=== PATIENT | female | born 1960 | race Caucasian/White ===

== ENCOUNTER → 2020-06-09 16:09 | Outpatient (CLI) | payer BC, SELFPAY ==
--- NOTE | 2020-06-09 | DI.MRI.S_ITS ---
PROCEDURE: MR SHOULDER LT WO CON INDICATIONS: Impingement syndrome of left shoulder TECHNIQUE: Noncontrast oblique coronal T2 fast spin echo with fat saturation, oblique sagittal T1 spin echo and T2 fast spin echo with fat saturation, axial T1 spin echo and T2 fast spin echo with fat saturation through the shoulder. COMPARISON: [facility] [place], CR, XR SHOULDER 2+ VIEWS LEFT, 05/05/2020, 15:49. FINDINGS: Image quality: Excellent. Rotator cuff: There is tendinosis and low to moderate grade articular and bursal surface partial thickness tear involving distal supraspinatus and infraspinatus at their insertion on the humeral head extending to musculotendinous junction. Distal subscapularis tendinosis and low-grade intrasubstance partial-thickness tear is also seen. Sagittal images demonstrate no significant muscle atrophy. Bones and bursae: No bone marrow contusions or fractures. Mild acromioclavicular joint and glenohumeral joint osteoarthritic changes are seen. The acromion demonstrates conventional anatomy, without an os acromiale. Small amount of joint effusion and subacromial subdeltoid bursal fluid is seen. Capsule and soft tissues: In the absence of intra-articular contrast, is suggestion of superior anterior labral tear at 12 to 1 o'clock position. The glenohumeral ligaments appear intact. The long head of the biceps tendinosis is seen. The rotator interval appears normal, without fibrosis. The coracohumeral ligament is normal in thickness. IMPRESSION: 1. Tendinosis and low to moderate grade articular and bursal surface partial thickness tear involving distal supraspinatus and infraspinatus extending to musculotendinous junction. Distal subscapularis tendinosis and low-grade intrasubstance partial-thickness tear. No full-thickness rotator cuff tendon rupture. 2. Mild acromioclavicular joint and glenohumeral joint osteoarthritis. 3. Suggestion of superior anterior labral tear at 12 to 1 o'clock position. 4. Proximal intra-articular portion of long head of biceps tendinosis. Dictated by: Дмитрий Coker M.D. on 06/09/2020 at 17:03 Approved by: Дмитрий Coker M.D. on 06/09/2020 at 17:24
== END ==
PROVIDERS: PCP Internal Medicine; Referring Provider Orthopaedic Surgery; Visit Provider Orthopaedic Surgery
DX: M75.42 Impingement syndrome of left shoulder (principal); M75.112 Incomplete rotator cuff tear or rupture of left shoulder, not specified as traumatic; M19.012 Primary osteoarthritis, left shoulder
CPT/HCPCS: 73221

== ENCOUNTER → 2020-08-02 14:51 | Outpatient (CLI) | payer BC, SELFPAY ==
--- NOTE | 2020-08-02 | DI.RAD.S_ITS ---
PROCEDURE: XR DEXA AXIAL SKELETON INDICATIONS: ASYMPTOMATIC MENOPAUSAL STATE COMPARISON: None. FINDINGS: This blank DEXA report has been sent in error by the PACS system. The correct and complete report will be forthcoming in 1-2 days. Thank you for your patience and understanding. Dictated by: Gerson Marroquin M.D. on 08/02/2020 at 17:18 Approved by: Gerson Marroquin M.D. on 08/02/2020 at 17:18
== END ==
PROVIDERS: PCP Internal Medicine; Referring Provider Internal Medicine; Visit Provider Internal Medicine
DX: M85.852 Other specified disorders of bone density and structure, left thigh; Z78.0 Asymptomatic menopausal state; Z87.891 Personal history of nicotine dependence; Z82.62 Family history of osteoporosis
CPT/HCPCS: 77080

== ENCOUNTER → 2020-08-03 10:15 | Outpatient (CLI) | payer BC, SELFPAY ==
--- NOTE | 2020-08-03 | DI.MG.S_ITS ---
BILATERAL DIGITAL SCREENING MAMMOGRAM 3D/2D WITH CAD: 08/03/2020 CLINICAL: Routine screening. Comparison is made to exams dated: 05/07/2018 mammogram, 04/10/2016 mammogram, and 03/20/2014 mammogram - outside location. There are scattered fibroglandular elements in both breasts. Current study was also evaluated with a Computer Aided Detection (CAD) system. No significant masses, calcifications, or other findings are seen in either breast. There has been no significant interval change. IMPRESSION: NEGATIVE There is no mammographic evidence of malignancy. A 1 year screening mammogram is recommended. This exam was interpreted at Station ID: [id number]. NOTE: For mammograms, a report in lay terms will be sent to the patient. Approximately 15% of breast malignancies will not be visualized mammographically. In the management of a palpable breast mass, a negative mammogram must not discourage biopsy of a clinically suspicious lesion. Electronically Signed By: Haley norris/johnny:08/03/2020 16:22:28 letter sent: Normal Exam ACR BI-RADS Category 1: Negative [id number]
== END ==
PROVIDERS: PCP Internal Medicine; Referring Provider Internal Medicine; Visit Provider Internal Medicine
DX: Z12.31 Encounter for screening mammogram for malignant neoplasm of breast (principal)
CPT/HCPCS: 77063; 77067

== ENCOUNTER 2020-12-26 10:20 | Emergency (ER) | payer BC, SELFPAY ==
[2020-12-26 10:25] VITALS: BP 117/67; PULSE 76; RESP 17; TEMP 36.2; O2SAT 97
--- NOTE | 2020-12-26 10:38 | DI.RAD.S_ITS ---
PROCEDURE: XR FOOT RT MIN 3V INDICATIONS: fall from 3rd rung of ladder, + swelling bruising and pain. TECHNIQUE: 3 views of the foot were acquired. COMPARISON: None. FINDINGS: Bones: Mildly comminuted, minimally displaced fracture of base of the 5th metatarsal extending to the articular surface. No suspicious bony lesions. Soft tissues: No tibiotalar joint effusion. Achilles tendon appears normal. IMPRESSION: Mildly comminuted, minimally displaced fracture base 5th metatarsal extending to articular surface. Dictated by: Robert Mathews M.D. on 12/26/2020 at 10:33 Approved by: Robert Mathews M.D. on 12/26/2020 at 10:33
--- NOTE | 2020-12-26 10:38 | DI.RAD.S_ITS ---
PROCEDURE: XR ANKLE RT MIN 3V INDICATIONS: fall from 3rd rung of ladder, + swelling bruising and pain. TECHNIQUE: 3 views of the ankle were acquired. COMPARISON: None. FINDINGS: Bones: Minimally displaced base of 5th metatarsal fracture extending to the articular surface. No other fractures or dislocations are identified. Ankle mortise is normally aligned. No suspicious bony lesions. Soft tissues: No tibiotalar joint effusion. Achilles tendon appears normal. IMPRESSION: Minimally displaced base of 5th metatarsal fracture extending to the articular surface. Dictated by: Robert Mathews M.D. on 12/26/2020 at 10:31 Approved by: Robert Mtahews M.D. on 12/26/2020 at 10:32
--- NOTE | 2020-12-26 11:29 | ED_ITS ---
HPI - Extremity Injury (Lower) General Chief Complaint: Extremity Injury, Lower Stated Complaint: fell off of ladder, left ankle pain Time Seen by Provider: 12/26/20 10:46 Source: patient Mode of arrival: Wheelchair Limitations: no limitations History of Present Illness HPI Narrative: Patient is a 60-year-old female who presents with left foot and ankle pain. She states she fell a ladder this morning she was 1-2 steps high when she fell backwards. Her foot got twisted and stuck. She did hit her head but all no loss of consciousness she has no sign of trauma to her head. She denies any neck pain no back pain. She does have a small abrasion on her right elbow as well. She actually has an appointment with orthopedic surgery in 2 days for follow-up after her left shoulder surgery. Related Data Previous Rx's Medication Instructions Recorded hydrocodone 5 mg-acetaminophen 325 1 tab PO Q6H PRN #10 tab 12/26/20 mg tablet Allergies Allergy/AdvReac Type Severity Reaction Status Date / Time meperidine [From Demerol] Allergy Unknown Verified 12/26/20 10:42 Review of Systems Review of Systems Narrative: GENERAL: Denies chills, fatigue, malaise, fever, sweats, travel HEENT: Denies sinus pain, ear pain, sore throat, difficulty swallowing, neck pain RESPIRATORY: Denies dyspnea, cough, wheezing, hemoptysis, sputum. CARDIOVASCULAR: Denies chest pain, palpitations, orthopnea, edema GASTROINTESTINAL: Denies nausea, vomiting, abdominal pain, diarrhea, constipation, melena. : Denies dysuria, frequency, incontinence, hematuria, urinary retention, flank pain. MUSCULOSKELETAL: See HPI SKIN: No rash, no erythema, no pruritus NEUROLOGIC: Denies weakness, dizziness, headache, numbness, change in speech, confusion PSYCHIATRIC: No concerning psychosocial issues. 12 point review of systems is negative except for those stated above and HPI Patient History Social History Smoking Status: Former smoker Smoking Status: Former smoker alcohol intake frequency: 0-2 drinks per day Substance Use Type: does not use Exam Initial Vital Signs Initial Vital Signs: Vital Signs Temperature 97.1 F L 12/26/20 10:25 Pulse Rate 76 12/26/20 10:25 Respiratory Rate 17 12/26/20 10:25 Blood Pressure 117/67 12/26/20 10:25 Pulse Oximetry 97 12/26/20 10:25 GENERAL: Alert well-appearing 60-year-old the change and in no acute distress. HEENT: Head atraumatic,EOMI, pupils reactive, face symmetric, moist mucous membranes CARDIOVASCULAR: Regular rate and rhythm without murmurs, rubs or gallops. RESPIRATORY: Breath sounds equal bilaterally, no wheezes rales or rhonchi. ABDOMEN: Soft, nontender. Normoactive bowel sounds all 4 quadrants. No guarding or rebound. EXTREMITIES: Normal range of motion, no clubbing or edema. Neurovascularly intact Left ankle swelling and contusion distal pedal pulse intact. Pain at 5th metatarsal no significant swelling NEUROLOGICAL: Alert and oriented x4. SKIN: Warm, dry, no laceration, no petechiae, no rashes or lesions. Course Orders Ordered: ED Orders 12/26/20 10:38 XR ankle RT min 3V Stat XR foot RT min 3V Stat Discontinued Medications Hydrocodone Bitart/Acetaminophen (Hydrocodone/Acet 5/325 Tablet) 1 tab PO NOW ONE Stop: 12/26/20 11:48 Last Admin: 12/26/20 11:52 Dose: 1 tab Documented by: KLAUDIA Vital Signs Vital signs: Vital Signs - 8 hr 12/26/20 12:10 Pulse Rate 70 Respiratory Rate 14 Blood Pressure 100/78 Pulse Oximetry 99 MDM - Extremity Injury (Lower) Imaging Data Extremity x-ray #1: Radiologist's Impression: PROCEDURE: XR ANKLE RT MIN 3V INDICATIONS: fall from 3rd rung of ladder, + swelling bruising and pain. TECHNIQUE: 3 views of the ankle were acquired. COMPARISON: None. FINDINGS: Bones: Minimally displaced base of 5th metatarsal fracture extending to the articular surface. No other fractures or dislocations are identified. Ankle mortise is normally aligned. No suspicious bony lesions. Soft tissues: No tibiotalar joint effusion. Achilles tendon appears normal. IMPRESSION: Minimally displaced base of 5th metatarsal fracture extending to the articular surface. Dictated by: Robert Mathews M.D. on 12/26/2020 at 10:31 Extremity x-ray #2: Radiologist's Impression: PROCEDURE: XR FOOT RT MIN 3V INDICATIONS: fall from 3rd rung of ladder, + swelling bruising and pain. TECHNIQUE: 3 views of the foot were acquired. COMPARISON: None. FINDINGS: Bones: Mildly comminuted, minimally displaced fracture of base of the 5th metatarsal extending to the articular surface. No suspicious bony lesions. Soft tissues: No tibiotalar joint effusion. Achilles tendon appears normal. IMPRESSION: Mildly comminuted, minimally displaced fracture base 5th metatarsal extending to articular surface. Dictated by: Robert Mathews M.D. on 12/26/2020 at 10:33 Discharge Plan Departure Patient Disposition: Home Clinical Impression: Ankle sprain Fracture of fifth metatarsal bone of left foot Qualifiers: Encounter type: initial encounter Fracture type: closed Physeal involvement: unspecified Qualified Code(s): S92.352A - Displaced fracture of fifth metatarsal bone, left foot, initial encounter for closed fracture Instructions: Ankle Sprain, DI for Toe Fracture Activity Restrictions/Additional Instructions: *You have been diagnosed with left ankle sprain and a left 5th metatarsal fracture *What to do: Where orthopedic shoe at all times. Use crutches as needed. Elevate and ice ankle and foot as needed *Continue to take medications as directed [place] 1 tablet every 6 hours if needed for severe pain Ibuprofen 600 mg every 6 hours if needed for xbew-um-sdbsprrc pain *Follow up with your primary care provider in 2-3 days Follow-up with your orthopedic as scheduled in 2 days *Return to ER if you should have increasing pain, redness, swelling or any new, worsening or concerning symptoms CONTROLLED SUBSTANCE DISCHARGE (Narcotoic/benzodiazepine/Flexeril/Phenergan) 1. You have been prescribed narcotic medications, it does have acetaminophen/Tylenol/paracetamol in it, DO NOT TAKE MORE THAN 4,00mg in 24 hours of Tylenol. TRAMADOL DOES NOT CONTAIN TYLENOL 2. Please understand that we cannot provide further refills of narcotics, benzodiazepines or controlled substances through the ED and her pain management will need to be through your provider. 3. While on these medications you cannot drive or operate heavy machinery. 4. You cannot sign legal documents or perform any duties such as this. 5. As long as you're taking opiate pain medications he should also be taking a stool softener such as Colace, Dulcolax, MiraLAX or prune juice, to help avoid constipation. Prescriptions: New hydrocodone-acetaminophen 5-325 mg tablet 1 tab PO Q6H PRN (Reason: pain) Qty: 10 RF: 0 Referrals: Ginna Mcdonald ARNP [Primary Care Provider] -
[2020-12-26] MEDS: HYDROCODONE/ACET 5/325 TABLET 1 TAB PO (11:52)
[2020-12-26 12:10] VITALS: BP 100/78; PULSE 70; RESP 14; O2SAT 99
== END 2020-12-26 12:12 | disposition home or self-care (01) ==
PROVIDERS: Emergency Provider Emergency Medicine; PCP Internal Medicine
DX: S92.352A Displaced fracture of fifth metatarsal bone, left foot, initial encounter for closed fracture (principal); S93.402A Sprain of unspecified ligament of left ankle, initial encounter; W11.XXXA Fall on and from ladder, initial encounter
CPT/HCPCS: 73610; 73630; 99283; 99284

== ENCOUNTER → 2022-02-15 08:22 | Outpatient (CLI) | payer BC, SELFPAY ==
--- NOTE | 2022-02-15 | DI.MG.S_ITS ---
BILATERAL DIGITAL SCREENING MAMMOGRAM 3D/2D WITH CAD: 02/15/2022 CLINICAL: Routine screening. Comparison is made to exams dated: 08/03/2020 mammogram - [facility], 05/07/2018 mammogram, 04/10/2016 mammogram, and 03/20/2014 mammogram - outside location. There are scattered areas of fibroglandular density in both breasts (category b / 25%-50% glandular tissue). Current study was also evaluated with a Computer Aided Detection (CAD) system. No significant masses, calcifications, or other findings are seen in either breast. There has been no significant interval change. IMPRESSION: NEGATIVE There is no mammographic evidence of malignancy. A 1 year screening mammogram is recommended. Based on the Tyrer Cuzick model (a risk assessment model) the patient's lifetime risk is 6.2% and her 10 year risk is 2.7%. According to the ACR, ACS, and NCCN guidelines, an annual breast MRI exam along with mammogram is recommended if the patient's lifetime risk is 20% or greater. This exam was interpreted at Station ID: [id number]. NOTE: For mammograms, a report in lay terms will be sent to the patient. Approximately 15% of breast malignancies will not be visualized mammographically. In the management of a palpable breast mass, a negative mammogram must not discourage biopsy of a clinically suspicious lesion. Electronically Signed By: Neville garcia/johnny:02/15/2022 11:10:10 letter sent: Normal Exam ACR BI-RADS Category 1: Negative 3341F
== END ==
PROVIDERS: PCP Internal Medicine; Referring Provider Internal Medicine; Visit Provider Internal Medicine
DX: Z12.31 Encounter for screening mammogram for malignant neoplasm of breast (principal)
CPT/HCPCS: 77063; 77067

== ENCOUNTER 2022-10-13 15:43 | Emergency (ER) | payer BC, SELFPAY ==
[2022-10-13 15:54] VITALS: BP 132/77; PULSE 73; RESP 18; TEMP 36.6; O2SAT 100; BMI 25.7
--- NOTE | 2022-10-13 16:45 | PC.NURSE ---
Removed bandage and bleeding has stopped. Lac appears well approximated and less then 1cm
== END 2022-10-13 17:17 | disposition left against medical advice (07) ==
PROVIDERS: Emergency Provider Emergency Medicine; PCP Internal Medicine
CPT/HCPCS: 99281

== ENCOUNTER 2023-07-03 08:52 | Emergency (ER) | payer BC, SELFPAY ==
[2023-07-03 09:00] VITALS: BP 112/77; PULSE 78; RESP 18; TEMP 36.6; O2SAT 98; BMI 25.7
--- NOTE | 2023-07-03 09:22 | DI.CT.S_ITS ---
PROCEDURE: CT HEAD/BRAIN WO CON INDICATIONS: RAMÍREZ vertigo, recent head injury TECHNIQUE: Noncontrast 4.5 mm thick angled axial sections acquired from the foramen magnum to the vertex, with coronal and sagittal reformats. For radiation dose reduction, the following was used: automated exposure control, adjustment of mA and/or kV according to patient size. COMPARISON: None. FINDINGS: Image quality: Diagnostic. CSF spaces: Basal cisterns are patent. No extra-axial fluid collections. Ventricles are normal in size and shape. Brain: No midline shift. No intracranial masses or hemorrhage. Tyler-white matter interface is normal. Skull and face: Calvarium and visualized facial bones are intact, without suspicious lesions. Sinuses: Visualized sinuses and mastoids are clear. IMPRESSION: No acute intracranial pathology. Dictated by: Agnes Vu M.D. on 07/03/2023 at 9:45 Approved by: Agnes Vu M.D. on 07/03/2023 at 9:46
--- NOTE | 2023-07-03 09:24 | ED.HEATRA ---
HPI - Head Injury General Chief complaint: Head Injury Stated complaint: vertigo really bad/headache/hit head 1wk ago Time Seen by Provider: 07/03/23 09:17 Source: patient Mode of arrival: Wheelchair History of Present Illness HPI Narrative: This is a 63-year-old female who arrives by private vehicle accompanied by her who contributes to the history. She says that she is having dizziness has been ongoing for 3 days. It is constant but it does change with movements of her head. It has been progressive since its onset. It was associated with a headache nausea and vomiting. She has not had fevers. Six days ago, she fell backwards from standing height and hit the back of her head. No loss of consciousness. Did not have a severe headache at that time. She is not taking any blood thinners. In addition to the headache with nausea and vomiting she has some diarrhea. She was in [place] when she fell. She says the vertigo is present all the time. It is worse when she is standing up or when her head is left side down. No changes in her hearing. No other neurologic symptoms, no numbness weakness difficulty with speech or swallowing not having fevers. Had diarrhea when she returned from [place] this is almost completely resolved at present. Related Data Home Medications Medication Instructions Recorded Confirmed citalopram [Celexa] PO 03/29/22 03/29/22 terbinafine HCl 250 mg tablet 250 mg PO DAILY 03/29/22 03/29/22 Previous Rx's Medication Instructions Recorded lidocaine HCl 2 % mucosal solution 1 applic mucous membrane TID mouth 03/29/22 sores #100 mL lorazepam 0.5 mg tablet 0.5 mg PO BID PRN vertigo #10 tabs 07/03/23 ondansetron 4 mg disintegrating 4 mg PO Q6H PRN nausea and 07/03/23 tablet vomiting #10 tabs Allergies Allergy/AdvReac Type Severity Reaction Status Date / Time meperidine [From Demerol] Allergy Unknown Verified 10/13/22 15:59 erythromycin base AdvReac Intermediate Abdominal Verified 10/13/22 15:59 Pain Patient History Social History Smoking Status: Former smoker Smoking Status: Former smoker alcohol intake frequency: a few times a month Substance Use Type: marijuana Exam Initial Vital Signs Initial Vital Signs: Vital Signs Temperature 97.8 F 07/03/23 09:00 Pulse Rate 78 07/03/23 09:00 Respiratory Rate 18 07/03/23 09:00 Blood Pressure 112/77 07/03/23 09:00 Pulse Oximetry 98 07/03/23 09:00 Oxygen Delivery Method Room Air 07/03/23 09:00 HENMT Head: normocephalic, atraumatic, No contusion, No hematoma, No laceration, No palpable skull fracture and No raccoon eyes Ears: hearing grossly normal bilaterally, TM's normal bilaterally and mastoids normal HENMT Other: No kellogg sign or raccoon eyes Eyes Pupils: PERRL EOM: EOM intact bilaterally, no movement deficit and nystagmus (Fast phase to the left horizontal nystagmus) Neck Neck: supple and No tender Resp Effort & Inspection: normal respiratory effort and able to speak in complete sentences Auscultation: clear to auscultation bilaterally Skin General: dry skin and warm Neuro Cranial Nerves: nystagmus (Fast phase to the left horizontal nystagmus) Cognition: normal cognition Speech: speech normal Motor: muscle tone normal throughout and strength 5/5 throughout Course Orders Ordered: ED Orders 07/03/23 09:22 CT head/brain wo con Stat 07/03/23 09:38 CBC Auto Diff [Complete Blood Count AUTO DIFF] Stat CMP [Comprehensive Metabolic Panel] Stat PT [Prothrombin Time INR] Stat Discontinued Medications Ondansetron HCl (Ondansetron 4 Mg Odt) 4 mg SL NOW ONE Stop: 07/03/23 09:23 Last Admin: 07/03/23 09:33 Dose: 4 mg Documented By: HAYLIE Vital Signs Vital signs: Vital Signs - 8 hr 07/03/23 09:00 Temperature 97.8 F Pulse Rate 78 Respiratory Rate 18 Blood Pressure 112/77 Pulse Oximetry 98 Oxygen Delivery Method Room Air MDM - Head Injury Lab Data Lab results narrative: CBC with diff and CMP are unremarkable 07/03/23 09:38 07/03/23 09:38 Labs: Lab Results 07/03/23 Range/Units 09:38 WBC 4.4 L (4.5-11.0) X10^3/uL RBC 5.36 H (4.0-5.2) X10^6/uL Hgb 16.4 H (12.0-16.0) g/dL Hct 48.0 H (36-46) % MCV 89.7 (80-100) fL MCH 30.6 (26-34) PG MCHC 34.1 (30-36) % RDW 14.2 (11.6-14.8) % Plt Count 223 (150-400) X10^3/uL Neut % (Auto) 72.0 (50-75) % Lymph % (Auto) 19.2 L (25-40) % [place] % (Auto) 7.1 (3-14) % Eos % (Auto) 1.1 L (2-4) % Baso % (Auto) 0.6 (0-2) % Neut # (Auto) 3200 (4868-4792) /uL Lymph # (Auto) 900 L (8968-2751) /uL [place] # (Auto) 300 (0-900) /uL Eos # (Auto) 0 (0-450) /uL Baso # (Auto) 0 (0-100) /uL PT 12.1 (9.4-12.5) SECONDS INR 1.1 (0.9-1.3) Sodium 137 (137-145) mmol/L Potassium 4.5 (3.4-5.1) mmol/L Chloride 103 (98-107) mmol/L Carbon Dioxide 27 (22-32) mmol/L BUN 14 (7-17) mg/dL Creatinine 0.96 (0.52-1.04) mg/dL Estimated GFR > 60 (>60) mL/min BUN/Creatinine Ratio 14.6 (6-22) Glucose 98 (80-110) mg/dL Calcium 9.7 (8.4-10.2) mg/dL Total Bilirubin 0.7 (0.2-1.3) mg/dL AST 30 (14-36) IU/L ALT 24 (<35) IU/L Alkaline Phosphatase 56 (38-126) U/L Total Protein 7.8 (6.3-8.2) g/dL Albumin 4.4 (3.5-5.0) g/dL Globulin 3.4 (1.7-4.1) g/dL Albumin/Globulin Ratio 1.3 (1.0-2.8) Imaging Data CT scan - head: My Impression: No evidence of basal skull fracture or hemorrhage Radiologist's Impression: No acute findings on report MDM Narrative Medical decision making narrative: 63-year-old female presenting with 3 days of vertigo. Onset was about 3 days after a minor head injury without loss of consciousness and she was asymptomatic for 3 days after the minor head injury. CT head is negative for evidence of acute intracranial injury or skull fracture I also did not see any evidence of a basilar skull fracture. Overall I do not think the patient's dizziness is related to a concussion or head injury. Presentation is consistent with peripheral vertigo, given her otherwise reassuring exam and history who not pursue an MRI given that she has had 3 days of symptoms and has a normal non con head CT. We discussed treatment of vestibular neuronitis with prednisone, the patient prefers not to do that and I do not think the evidence for it is good. Recommended symptomatic care including ondansetron with just a few lorazepam as needed for vertigo we discussed the need to not drink alcohol or drive after taking lorazepam. Discharge Plan Departure Patient Disposition: Home Clinical Impression: Dizziness, Acute vestibular neuronitis of left ear Activity Restrictions/Additional Instructions: Today we saw you for dizziness. Workup is generally reassuring, I do not think your symptoms are from a stroke or head injury. We discussed prednisone which might help you feel better sooner but the evidence is weak and you declined. I sent prescriptions for ondansetron to use for nausea and a few lorazepam for dizziness. Do not drive or drink alcohol after taking lorazepam. You can use acetaminophen (Tylenol) as needed for headaches. Acetaminophen (tylenol) should be dosed at 650 mg every 4 hours or 1000mg every 6 hours. It can be given as needed but is more effective if given on a scheduled basis. Total daily dose should not exceed 4,000mg. If you were prescribed norco (hydrocodone/apap) or percocet (oxycodone/apap) each tablet of these contains 325 mg of acetaminophen and should be included when calculating daily dose Make an appointment to follow up with the regular doctor soon. If having disabling dizziness or other acute symptoms of concern such as chest pain shortness of breath new numbness or weakness or severe headache return to the emergency department. Prescriptions: New ondansetron 4 mg tablet,disintegrating 4 mg PO Q6H PRN (Reason: nausea and vomiting) Qty: 10 0RF lorazepam 0.5 mg tablet 0.5 mg PO BID PRN (Reason: vertigo) Qty: 10 0RF No Action terbinafine HCl 250 mg tablet 250 mg PO DAILY citalopram [Celexa] PO lidocaine HCl 2 % solution 1 applic mucous membrane TID Qty: 100 0RF Referrals: Ginna Mcdonald ARNP [Primary Care Provider] - Stand Alone Forms: Patient Portal/API
[2023-07-03] MEDS: ONDANSETRON 4 MG ODT SL (09:33)
[2023-07-03 09:50] LABS: Add Manual Diff / Slide Review NO; Basophils Absolute Auto 0 /uL (0-100); Basophils Percent Auto 0.6 % (0-2); Eosinophils Absolute Auto 0 /uL (0-450); Eosinophils Percent Auto 1.1 % (2-4); Hemoglobin 16.4 g/dL (12.0-16.0); Lymphocytes Absolute Auto 900 /uL (1100-4500); Lymphocytes Percent Auto 19.2 % (25-40); Mean Corpuscular HGB Conc 34.1 % (30-36); Mean Corpuscular Hemoglobin 30.6 PG (26-34); Mean Corpuscular Volume 89.7 fL (80-100); Monocytes Absolute Auto 300 /uL (0-900); Monocytes Percent Auto 7.1 % (3-14); Neutrophils Absolute Auto 3200 /uL (1500-7000); Platelet Count 223 X10^3/uL (150-400); Red Blood Cell Count 5.36 X10^6/uL (4.0-5.2); Red Cell Distribution Width 14.2 % (11.6-14.8); White Blood Cell Count 4.4 X10^3/uL (4.5-11.0)
[2023-07-03 10:02] LABS: INR 1.1 (0.9-1.3); Prothrombin Time 12.1 SECONDS (9.4-12.5)
[2023-07-03 10:06] LABS: Alanine Aminotransferase 24 IU/L (<35); Albumin 4.4 g/dL (3.5-5.0); Albumin Globulin Ratio 1.3 (1.0-2.8); Alkaline Phosphatase 56 U/L (38-126); Aspartate Aminotransferase 30 IU/L (14-36); BUN Creatinine Ratio 14.6 (6-22); Bilirubin Total 0.7 mg/dL (0.2-1.3); Blood Urea Nitrogen 14 mg/dL (7-17); Calcium 9.7 mg/dL (8.4-10.2); Carbon Dioxide 27 mmol/L (22-32); Chloride 103 mmol/L (98-107); Estimated Glomerular Filt Rate > 60 mL/min (>60); Globulin 3.4 g/dL (1.7-4.1); Glucose 98 mg/dL (80-110); HEMOLYSIS < 15 (0-50); Potassium 4.5 mmol/L (3.4-5.1); Sodium 137 mmol/L (137-145); Total Protein 7.8 g/dL (6.3-8.2)
[2023-07-03 11:30] VITALS: BP 112/67; PULSE 66; RESP 16; O2SAT 96
== END 2023-07-03 11:30 | disposition home or self-care (01) ==
PROVIDERS: Emergency Provider Emergency Medicine; PCP Internal Medicine
DX: H81.22 Vestibular neuronitis, left ear (principal); R42 Dizziness and giddiness; S09.90XD Unspecified injury of head, subsequent encounter; W18.30XD Fall on same level, unspecified, subsequent encounter
CPT/HCPCS: 36415; 70450; 80053; 85025; 85610; 99283; 99284

== ENCOUNTER → 2023-07-31 08:41 | Outpatient (CLI) | payer BC, SELFPAY ==
--- NOTE | 2023-07-31 08:42 | DI.MG.S_ITS ---
BILATERAL DIGITAL DIAGNOSTIC MAMMOGRAM 3D/2D: 07/31/2023 CLINICAL: Skin discoloration. Comparison is made to exams dated: 02/15/2022 mammogram, 08/03/2020 mammogram - [facility], and 05/07/2018 mammogram - outside location. There are scattered areas of fibroglandular density in both breasts (category b / 25%-50% glandular tissue). No significant masses, calcifications, or other findings are seen in either breast. IMPRESSION: INCOMPLETE: NEEDS ADDITIONAL IMAGING EVALUATION There is no abnormality seen in the left breast to correspond with the area of clinical concern indicated by a square marker in the medial aspect, however, ultrasound is recommended. Based on the Tyrer Cuzick model (a risk assessment model) the patient's lifetime risk is 5.8% and her 10 year risk is 2.7%. According to the ACR, ACS, and NCCN guidelines, an annual breast MRI exam along with mammogram is recommended if the patient's lifetime risk is 20% or greater. This exam was interpreted at Station ID: [id number]. NOTE: For mammograms, a report in lay terms will be sent to the patient. Approximately 15% of breast malignancies will not be visualized mammographically. In the management of a palpable breast mass, a negative mammogram must not discourage biopsy of a clinically suspicious lesion. Electronically Signed By: Gerson gill/johnny:07/31/2023 09:31:48 ACR BI-RADS Category 0: Incomplete [id number]
--- NOTE | 2023-07-31 08:43 | DI.US.S_ITS ---
LIMITED ULTRASOUND OF LEFT BREAST: 07/31/2023 CLINICAL: Skin rash/discoloration. Comparison is made to exams dated: 07/31/2023 mammogram, 02/15/2022 mammogram, and 08/03/2020 mammogram - [facility]. Real-time ultrasound of the left breast 8-9 o'clock region was performed. Tyler scale images of the real-time examination were reviewed. No significant abnormalities were seen sonographically in the left breast. IMPRESSION: NEGATIVE There is no sonographic evidence of malignancy. There is no abnormality seen in the left breast to correspond with the area of clinical concern at 9 o'clock, however, clinical followup is recommended. Return to annual mammogram screening schedule is recommended. This exam was interpreted at Station ID: [id number]. Electronically Signed By: Gerson gill/johnny:07/31/2023 09:46:52 letter sent: Clinical Evaluation Ultrasound BI-RADS: 1 Negative
== END ==
PROVIDERS: PCP Internal Medicine; Referring Provider Internal Medicine; Visit Provider Internal Medicine
DX: R92.2 Inconclusive mammogram (principal); N63.23 Unspecified lump in the left breast, lower outer quadrant; R21 Rash and other nonspecific skin eruption; R92.323 Mammographic fibroglandular density, bilateral breasts
CPT/HCPCS: 76642; 77066; G0279

== ENCOUNTER → 2023-12-12 | Outpatient (CLI) | payer BC, SELFPAY ==
--- NOTE | 2023-12-12 08:36 | DI.RAD.S_ITS ---
PROCEDURE: XR FOOT LT MIN 3V INDICATIONS: LT FOOT PAIN TECHNIQUE: 3 views of the foot were acquired. COMPARISON: [facility], CR, XR FOOT 3 VIEWS WEIGHT BEARING LEFT, 05/10/2021, 10:01. [facility], CR, XR FOOT 3 VIEWS WEIGHT BEARING LEFT, 09/25/2022, 10:53. FINDINGS: Bones: No acute fractures or dislocations. Osseous protuberance at the 5th metatarsal base may be the sequela of remote prior trauma. No suspicious bony lesions. Generalized osteopenia. Mild degenerative changes at the 1st metatarsophalangeal joint and in the interphalangeal joints of the toes. Calcaneal enthesopathy. Soft tissues: No suspicious soft tissue calcification. IMPRESSION: 1. Small osseous protuberance at the 5th metatarsal base is likely the sequela of prior trauma/instrumentation. 2. Mild forefoot osteoarthrosis. 3. Calcaneal enthesopathy. Approved by: Gerson Marroquin M.D. on 12/12/2023 at 14:11
== END ==
PROVIDERS: PCP Internal Medicine; Referring Provider Podiatrist; Visit Provider Podiatrist
DX: M19.072 Primary osteoarthritis, left ankle and foot (principal); M79.672 Pain in left foot; M77.32 Calcaneal spur, left foot; M89.9 Disorder of bone, unspecified
CPT/HCPCS: 73630

== ENCOUNTER → 2024-08-25 | Outpatient (CLI) | payer MEDICARE, BC, SELFPAY ==
--- NOTE | 2024-08-25 12:06 | DI.MG.S_ITS ---
MM screening mammo BI: 08/25/2024. BI-RADS: 1 CLINICAL: 64-year old female for bilateral screening mammogram. Tyrer-Cuzick lifetime risk of 3.9%. No personal or first-degree family history of breast cancer. PRIOR EXAMS 07/31/2023, 02/15/2022, 08/03/2020, 04/10/2016. MAMMOGRAPHY TECHNIQUE: Current study was also evaluated with a Computer Aided Detection (CAD) system. DENSITY B. There are scattered areas of fibroglandular density. MAMMOGRAPHY FINDINGS Bilateral: No suspicious mass, asymmetry, microcalcification, or other abnormality seen. IMPRESSION: * No evidence of malignancy. RECOMMENDATIONS Bilateral * Annual screening mammography. OVERALL ASSESSMENT CATEGORY BI-RADS-1: Negative. The [employer] recommends annual screening mammography beginning at age 40 for women with average risk of breast cancer. ELECTRONICALLY SIGNED: Neville Contreras M.D. on 08/26/2024 at 03:17:59 PM Interpreting Station ID: [id number]
== END ==
PROVIDERS: PCP Registered Nurse; Referring Provider Registered Nurse; Visit Provider Registered Nurse
DX: Z12.31 Encounter for screening mammogram for malignant neoplasm of breast (principal)
CPT/HCPCS: 77063; 77067

== ENCOUNTER → 2024-09-05 09:43 | Outpatient (CLI) | payer MEDICARE, BC, SELFPAY ==
--- NOTE | 2024-09-05 09:45 | DI.RAD.S_ITS ---
PROCEDURE: XR DEXA AXIAL SKELETON INDICATIONS: SCREENING FOR OSTEOPOROSIS COMPARISON: [facility], CR, XR DEXA AXIAL SKELETON, 08/02/2020, 15:09. FINDINGS: Lumbar Spine: Bone mineral density 1.004 g/cm2, T score -0.4, normal, change from previous-9.6%. Statistical significance of bone mineral density change cannot be determined due to dissimilar scan types or analysis method.. Left Femoral Neck: Bone mineral density 0.568 g/cm2, T score -2.5, osteoporosis, change from previous-8.0% Statistical significance of bone mineral density change cannot be determined due to dissimilar scan types or analysis method.. Left Hip: Bone mineral density 0.708 g/cm2, T score -1.9, osteopenia, change from previous-8.8%. Statistical significance of bone mineral density change cannot be determined due to dissimilar scan types or analysis method.. Fracture Risk Calculation (when applicable): 10-year fracture risk of a major osteoporotic fracture 13 percent and of a hip fracture 2.6 percent. (T score greater or equal to -1.0 to: NORMAL) (T score from -1.1 to -2.4: OSTEOPENIA) (T score less than or equal to -2.5: OSTEOPOROSIS) IMPRESSION: Decrease in bone mineral density in the left hip and lumbar spine compared to the prior study. Osteoporosis. The patient is at a high risk of fracture. Follow-up guidelines as follows: Osteoporosis: Consider a repeat DEXA and Vertebral Fracture Assessment (VFA) exam in 2 years or sooner if medically necessary, to reassess this patient's status. Osteopenia: Consider a repeat DEXA in 2-3 years to reassess this patient's status, or if there is a new clinical indication. Normal: Consider a repeat DEXA in 5 years or sooner, or if there is a new clinical indication. All treatment decisions require clinical judgment and consideration of individual patient factors, including patient preferences, comorbidities, previous drug use, risk factors not captured in the FRAX model (e.g., frailty, falls, vitamin D deficiency, increased bone turnover, interval significant decline in bone density ) and possible under- or over-estimation of fracture risk by FRAX. In addition, the NOF Guide recommends that FDA-approved medical therapies be considered in postmenopausal women and men age >= 50 years with a: * Hip or vertebral (clinical or morphometric) fracture * T-score of <=-2.5 at the spine or hip * Ten-year fracture probability by FRAX of >= 3% for hip fracture or >=20% for major osteoporotic fracture. Dictated by: Haley Carroll M.D. on 09/05/2024 at 14:49 Approved by: Haley Carroll M.D. on 09/05/2024 at 14:51
== END ==
PROVIDERS: PCP Registered Nurse; Referring Provider Registered Nurse; Visit Provider Registered Nurse
DX: M85.89 Other specified disorders of bone density and structure, multiple sites (principal); M81.0 Age-related osteoporosis without current pathological fracture
CPT/HCPCS: 77080